=== PATIENT | female | born 1945 | race Hispanic/Latino ===

== ENCOUNTER → 2017-06-25 | Outpatient (CLI) | payer MEDICARE ==
[~2017-06-25] MED LIST: ACETAMINOPHEN500 MG PO; BENICAR HCT 201 EACH PO; CLONIDINE HCL0.3 MG PO; DOCUSATE SODIU100 MG PO; DUONEB IH; FISH OIL 1,2001 EACH PO; GABAPENTIN300 MG PO; HYDRALAZINE HCL10 MG PO; HYDROXYZINE HCL25 MG PO; KLOR-CON 88 MEQ PO; LACTULOSE20 GM/30 M PO; LASIX40 MG PO; LEVOTHYROXINE75 MCG PO; LYRICA75 MG PO; METOLAZONE5 MG PO; NORVASC5 MG PO; PANTOPRAZOLE SO40 MG PO; SERTRALINE HCL50 MG PO; SIMETHICONE80 MG PO; TERAZOSIN HCL1 MG PO; VITAMIN B-121000 MC1 PO; VITAMIN B12 PO; VITAMIN D1000 UNI1 PO; VITAMIN D31000 UNI2 PO
--- NOTE | 2017-06-25 15:51 | Diagnostic Imaging Report ---
EXAM: Thyroid Ultrasound INDICATION: \[id number] \S\[id number] \S\MULTIPLE THYROID NODULES COMPARISON: Thyroid ultrasound dated 09/12/2016 TECHNIQUE: Transverse and sagittal images were obtained of the thyroid gland. FINDINGS: Thyroid gland: Size: Right lobe 4.1 x 1 x 1.1 cm, Normal in size Left lobe 7 x 2.4 x 2.8 cm, enlarged Isthmus 0.2 cm, Normal in size Appearance: Heterogeneous echotexture without increased vascularity Masses/Nodules: 0.4 x 0.2 x 0.4 cm cystic right isthmus nodule, unchanged. 2.4 x 1.4 x 1.9 cm left superior pole solid heterogeneous nodule, unchanged. 5.2 x 2.8 x 3.8 cm left mid to inferior pole heterogeneous solid nodule, previously 4.4 x 3.3 x 4.2 cm. Parathyroid: No focal parathyroid masses. IMPRESSION: Slight interval increase in size of left mid to inferior pole solid nodule. This nodule has been previously biopsied. Signed by: Dr. Doron Allen MD on 06/25/2017 3:48 PM
== END ==
LOC: US 14:02
PROVIDERS: ATTEND Otolaryngology
DX: E04.2 Nontoxic multinodular goiter (principal)
CPT/HCPCS: 76536

== ENCOUNTER → 2017-08-31 | Outpatient (CLI) | payer MEDICARE ==
--- NOTE | 2017-08-31 16:16 | Diagnostic Imaging Report ---
PROCEDURE: US THYROID COMPARISON: [facility], US, US THYROID, 05/10/2016, 11:08. [facility], US, US THYROID, 09/12/2016, 12:59. INDICATIONS:thyroid nodule follow up TECHNIQUE: Transverse and longitudinal neri-scale sonographic images of the thyroid were obtained and supplemented with color doppler. FINDINGS: Right thyroid lobe: 3.9 x 1.1 x 1.2 cm. Mildly heterogeneous echogenicity. Normal vascularity. * 0.3 x 0.1 x 0.2 cm cystic lesion in the mid aspect with punctate hyperechoic focus, consistent with a colloid cyst with inspissated colloid. Left thyroid lobe: 5.1 x 2.8 x 2.6 cm. Heterogeneous echogenicity. Mild increased vascularity. * 2.5 x 1.6 x 1.6 cm solid nodule with heterogeneous echogenicity in the superior pole. No microcalcifications or increased vascularity. Previously measured 2.4 x 1.4 x 2.0 cm.. * 4.7 x 3.1 x 2.9 cm solid nodule with heterogeneous echogenicity in the inferior pole with mild internal vascularity. No microcalcifications. Previously measured 4.4 x 3.3 x 4.2 cm. This nodule was previously biopsied. Isthmus: 0.3 cm. Mildly heterogeneous echogenicity. No increased vascularity. * Stable 0.3 x 0.2 x 0.3 cm cystic, anechoic lesion in the superior pole (previously measured 0.4 x 0.2 x 0.4 cm), consistent with a colloid cyst. * Additional 0.2 x 0.1 x 0.2 cm cystic lesion with punctate hyperechoic eccentric focus in the mid aspect consistent with a colloid cyst with inspissated colloid. CONCLUSION: 1. Normal bilateral thyroid lobe size. Bilateral heterogeneous echogenicity, left greater than right. Mild increased vascularity of the left lobe. This can be seen with thyroiditis. 2. Relatively stable size of 2 left solid thyroid nodules. No suspicious characteristics. These may be followed with thyroid ultrasound in 12 months. 3. 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 Bhupinder Camargo M.D. Dictated by: Bhupinder Camargo M.D. on 08/31/2017 at 16:18 Electronically approved by: Bhupinder Camargo M.D. on 08/31/2017 at 16:18
== END ==
LOC: US 14:07
PROVIDERS: ATTEND Otolaryngology
DX: E04.2 Nontoxic multinodular goiter (principal)
CPT/HCPCS: 76536

== ENCOUNTER → 2017-10-19 | Outpatient (CLI) | payer MEDICARE | LOC: RAD 13:27 | PROVIDERS: ATTEND Internal Medicine | DX: M79.89 Other specified soft tissue disorders (principal); R60.9 Edema, unspecified | CPT/HCPCS: 93971 ==

== ENCOUNTER → 2018-09-05 | Day surgery (SDC) | payer MEDICARE ==
[2018-09-02 16:27] LABS: BASOPHILS # (AUTO) 0.1 (0.0-0.1); BASOPHILS % 0.7 % (0.0-1.0); EOSINOPHILS # (AUTO) 0.2 (0.0-0.4); EOSINOPHILS % 2.2 % (0.0-6.0); HEMATOCRIT 39.1 % (34.2-44.1); HEMOGLOBIN 12.4 g/dL (12.0-16.0); LYMPHOCYTES # (AUTO) 2.2 (1.0-3.2); LYMPHOCYTES % 22.2 % (18.0-39.1); MEAN CORPUSCULAR HEMOGLOBIN 29.6 pg (28-32); MEAN CORPUSCULAR HGB CONC 31.7 g/dL (31-35); MEAN CORPUSCULAR VOLUME 93.3 fL (81-99); MONOCYTES # (AUTO) 0.7 (0.2-0.8); MONOCYTES % 7.1 % (4.4-11.3); NEUTROPHILS # (AUTO) 6.5 (2.1-6.9); NEUTROPHILS % 67.4 % (38.7-80.0); PLATELET COUNT 356 x10e3/uL (140-360); RED BLOOD COUNT 4.19 x10e6/uL (3.6-5.1); RED CELL DISTRIBUTION WIDTH 14.2 % (11.7-14.4)
[~2018-09-05] MED LIST changes: +ATORVASTATIN CA20 MG PO; +FENTANYL CITRATE/PF 100MCG/2 ML INJ ONE; +HYOSCYAMINE SULFATE 0.5 MG/ML INJ ONE; +LIDOCAINE HCL 2% LOCAL INJ 5 ML SDV VIAL INJ ONE; +LOSARTAN POTAS100 MG PO; +PREDNISONE10 MG PO; +PROPOFOL IV EMULSION 10 MG/ML 50 ML VIAL ONE
--- OUTSIDE RECORDS SUMMARY | 2018-09-05 10:47 | XMS REPORT ---
[facility] Address Unknown Phone Unavailable Care Team Providers [employer] Vice President Name Role Phone SARAHY MALDONADO Unavailable Unavailable Problems This patient has no known problems. Allergies, Adverse Reactions, Alerts This patient has no known allergies or adverse reactions. Medications This patient has no known medications. Results Test Description Test Time Test Comments Text Results Atomic Results Result Comments US THYROID [place] [address] Patient Name: HOWARD EVERETT MR #: [id number] : 1945 Age/Sex: 72/F Req #: [id number] Adm Physician: Ordered by: JOEL BENEDICT, SARAHY BENEDICT Report #: [id number] Location: US Room/Bed: Procedure: [id number] US/US THYROID Exam Date: 08/31/17 Exam Time: 1435 REPORT STATUS: Signed PROCEDURE: US THYROID COMPARISON: [facility], US, US THYROID, 05/10/2016, 11:08. [facility], US, US THYROID, 09/12/2016, 12:59. INDICATIONS: thyroid nodule follow up TECHNIQUE: Transverse and longitudinal neri-scale sonographic images of the thyroid were obtained and supplemented with color doppler. FINDINGS: Right thyroid lobe: 3.9 x 1.1 x 1.2 cm. Mildly heterogeneous echogenicity. Normal vascularity. * 0.3 x 0.1 x 0.2 cm cystic lesion in the mid aspect with punctate hyperechoic focus, consistent with a colloid cyst with inspissated colloid. Left thyroid lobe: 5.1 x 2.8 x 2.6 cm. Heterogeneous echogenicity. Mild increased vascularity. * 2.5 x 1.6 x 1.6 cm solid nodule with heterogeneous echogenicity in the superior pole. No microcalcifications or increased vascularity. P reviously measured 2.4 x 1.4 x 2.0 cm.. * 4.7 x 3.1 x 2.9 cm solid nodule with heterogeneous echogenicity in the inferior pole with mild internal vascularity. No microcalcifications. Previously measured 4.4 x 3.3 x 4.2 cm. This nodule was previously biopsied. Isthmus: 0.3 cm. Mildly heterogeneous echogenicity. No increased vascularity. * Stable 0.3 x 0.2 x 0.3 cm cystic, anechoic lesion in the superior pole (previously measured 0.4 x 0.2 x 0.4 cm), consistent with a colloid cyst. * Additional 0.2 x 0.1 x 0.2 cm cystic lesion with punctate hyperechoic eccentric focus in the mid aspect consistent with a colloid cyst with inspissated colloid. CONCLUSION: 1. Normal bilateral thyroid lobe size. Bilateral heterogeneous echogenicity, left greater than right. Mild increased vascularity of the left lobe. This can be seen with thyroiditis. 2. Relatively stable size of 2 left solid thyroid nodules. No suspicious characteristics. These may be fol lowed with thyroid ultrasound in 12 months. 3. 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 Maria Victoria Camargo M.D. Dictated by: Maria Victoria Camargo M.D. on 08/31/2017 at 16:18 Electronically approved by: Maria Victoria Camargo M.D. on 08/31/2017 at 16:18 Dictated By: MARIA VICTORIA CAMARGO MD 1618 Transcribed By: LINDA on 08/31/17 1618 COPY TO: SARAHY MALDONADO THYROID [place] [address] Patient Name: HOWARD EVERETT MR #: [id number] : 1945 Age/Sex: 72/F Req #: [id number] [facility] Physician: Ordered by: SARAHY MALDONADO MD, MD Report #: [id number] Location: Room/Bed: Procedure: [id number] US/US THYROID Exam Date: 06/25/17 Exam Time: 1436 REPORT STATUS: Signed EXAM: Thyroid Ultrasound INDICATION: COMPARISON: Thyroid ultrasound dated 09/12/2016 TECHNIQUE: Transverse and sagittal images were obtained of the thyroid gland. FINDINGS: Thyroid gland: Size: Right lobe 4.1 x 1 x 1.1 cm, Normal in size Left lobe 7 x 2.4 x 2.8 cm, enlarged Isthmus 0.2 cm, Normal in size Appearance: Heterogeneous echotexture without increased vascularity Masses/Nodules: 0.4 x 0.2 x 0.4 cm cystic right isthmus nodule, unchanged. 2.4 x 1.4 x 1.9 cm left superior pole solid heterogeneous nodule, unchanged. 5.2 x 2.8 x 3.8 cm left mid to inferior pole heterogeneous solid nodule, previously 4.4 x 3.3 x 4.2 cm. Parathyroid: No focal parathyroid masses. IMPRESSION: Slight interval increase in size of left mid to inferior pole solid nodule. This nodule has been previously biopsied. Signed by: Dr. Doron White MD on 06/25/2017 3:48 PM Dictated By: DORON WHITE MD 1548 Transcribed By: CESAR on 06/25/17 154 COPY TO: SARAHY MALDONADO
[2018-09-05 14:50] VITALS: BP 122/75
--- NOTE | 2018-09-05 15:29 | Operative Report ---
DATE OF PROCEDURE: 09/05/2018 SURGEON: Mike Velasquez MD PROCEDURES: Esophagogastroduodenoscopy with esophageal dilatation and biopsies and colonoscopy with polypectomy. ADDITIONAL REFERRING PHYSICIAN: Dr. Jerrell Gilman. INDICATIONS FOR EGD: Dysphagia, nausea. INDICATIONS FOR COLONOSCOPY: Surveillance colonoscopy, personal history of colon polyps. MEDICATIONS: The patient was done under MAC, please see anesthesiologist's note. PROCEDURE IN DETAIL: With the patient in left lateral decubitus position, flexible fiberoptic Olympus gastroscope was introduced into the esophagus under direct visualization without any difficulty. There was some patchy erythema noted in distal esophagus. A minute nodule was noted in the distal esophagus that was biopsied. A mild stricture was noted at the GE junction that was dilated to size 52-[place] Harris. The scope was then advanced with ease into the stomach traversing a small sliding hiatal hernia. Mucosa overlying the antrum and the body revealed some patchy erythema and low-grade to moderate edema and biopsies were obtained and sent to stain for H pylori. Several minute hyperplastic appearing polyps were noted in the body of the stomach and somewhat partially excised with the cold biopsy forceps. The pylorus was of normal contour and shape, it was intubated with ease and the scope was advanced all the way to the second portion of the duodenum. The scope was then withdrawn slowly and the mucosa overlying the proximal second portion and the duodenal bulb appeared to be within normal limits. The scope was then straightened out, it was subsequently withdrawn. The patient tolerated the procedure well. IMPRESSION: 1. Mild distal esophagitis. 2. Minute nodule distal esophagus, biopsied. 3. Esophageal stricture at GE junction dilated to size 52-[place] Harris. 4. Small sliding hiatal hernia. 5. Gastritis, biopsied. Biopsies sent to stain for Helicobacter pylori. 6. Gastric polyps several, hyperplastic appearing, some partially excised with the cold biopsy forceps. PLAN: Follow up histology. Initiate Protonix 40 mg one p.o. q.a.m. a.c. PROCEDURE IN DETAIL: The patient was then turned around and after adequate lubrication of the anal canal, flexible fiberoptic Olympus colonoscope was inserted into the rectum with ease and advanced all the way to the cecum. The scope was then withdrawn slowly. Mucosa overlying the cecum appeared to be within normal limits. Some diverticular disease was noted in the ascending colon. The transverse and descending grossly appeared to be within normal limits. Some diverticular disease was noted in the sigmoid colon. One polyp was hot biopsied from the proximal rectum. The scope was then retroflexed into the distal rectum and small internal hemorrhoids were noted, none of which was actively bleeding. The scope was then straightened out, it was subsequently withdrawn. The patient tolerated the procedure well. IMPRESSION: 1. Diverticulosis. 2. Rectal polyp, minute, hot biopsied. 3. Internal hemorrhoids, none actively bleeding. PLAN: Follow up histology. Initiate high-fiber, low-fat diet. Initiate high-fiber supplement. The patient might benefit from a followup colonoscopy in 3 to 5 years. Mike Velasquez MD [facility] [place]/TARA /[id number] cc: MD Jerrell Buckley MD
== END | disposition home or self-care (01) ==
LOC: OR 10:43
PROVIDERS: ATTEND Internal Medicine Gastroenterology
DX: K22.2 Esophageal obstruction (principal); K62.1 Rectal polyp; K31.7 Polyp of stomach and duodenum; K29.70 Gastritis, unspecified, without bleeding; K31.89 Other diseases of stomach and duodenum; K20.9 Esophagitis, unspecified; K22.8 Other specified diseases of esophagus; K44.9 Diaphragmatic hernia without obstruction or gangrene; K57.30 Diverticulosis of large intestine without perforation or abscess without bleeding; K64.8 Other hemorrhoids; I10 Essential (primary) hypertension; E03.9 Hypothyroidism, unspecified; K21.9 Gastro-esophageal reflux disease without esophagitis; Z88.1 Allergy status to other antibiotic agents; Z01.810 Encounter for preprocedural cardiovascular examination; Z01.812 Encounter for preprocedural laboratory examination; Z68.30 Body mass index [BMI] 30.0-30.9, adult
CPT/HCPCS: 36415; 43239; 43450; 45384; 85025; 88305; 88312; 93005; J1980; J2001; J2704; 45378